=== PATIENT | female | born 1975 | race Asian ===

== ENCOUNTER 2024-04-15 10:08 | Emergency (ER) | payer OTHER, SELFPAY ==
[2024-04-15] VITALS (9 sets, daily range): BP systolic 128–173; BP diastolic 74–93; PULSE 62–70; RESP 12–14; TEMP 36.4; O2SAT 96–100; BMI 20.5
--- NOTE | 2024-04-15 10:46 | ED_ITS ---
HPI - Extremity Injury (Lower) General Chief Complaint: Extremity Injury, Lower Stated Complaint: Left side px Time Seen by Provider: 04/15/24 10:45 Source: patient and family Mode of arrival: Ambulatory History of Present Illness HPI Narrative: Patient is a 49-year-old female without significant past medical history presenting today with left leg pain and swelling. She reports that posterior thigh in her hamstring has been swollen and painful for the last 2 weeks worse over the last 2 days. Denies any sort of injury no fever chills or redness. Denies any chest pain. Reports no recent travel. Family have had blood clots but she has not personally had 1. Denies back pain denies injury. No abdominal pain nausea or vomiting She does speak Upper Sor[place] but there is some language barrier son is at bedside offered modern languages professor services which were decline Related Data Allergies Allergy/AdvReac Type Severity Reaction Status Date / Time No Known Drug Allergies Allergy Verified 04/15/24 10:29 Patient History Social History Smoking Status: Never smoker Smoking Status: Never smoker Exam Initial Vital Signs Initial Vital Signs: Vital Signs Temperature 97.6 F 04/15/24 10:15 Pulse Rate 65 04/15/24 10:15 Respiratory Rate 14 04/15/24 10:15 Blood Pressure 173/93 H 04/15/24 10:15 Pulse Oximetry 98 04/15/24 10:15 Oxygen Delivery Method Room Air 04/15/24 10:15 GENERAL: Well-appearing, well-nourished and in no acute distress. HEENT: Head atraumatic,EOMI, pupils reactive, face symmetric, moist mucous membranes CARDIOVASCULAR: Regular rate and rhythm without murmurs, rubs or gallops. RESPIRATORY: Breath sounds equal bilaterally, no wheezes rales or rhonchi. ABDOMEN: Soft, nontender. Normoactive bowel sounds all 4 quadrants. No guarding or rebound. EXTREMITIES: Normal range of motion, no clubbing or edema. Neurovascularly intact Left leg mild swollen him string full range of motion distal pedal pulse intact no erythema femoral pulse intact. More NEUROLOGICAL: Alert and oriented x4.Normal gait and speech. SKIN: Warm, dry, no laceration, no petechiae, no rashes or lesions. Course Orders Ordered: ED Orders 04/15/24 10:54 US periph venous low extrem lt Stat 04/15/24 11:00 CBC Auto Diff [Complete Blood Count AUTO DIFF] Stat CMP [Comprehensive Metabolic Panel] Stat CPK [Creatine Kinase] Stat Discontinued Medications Ketorolac Tromethamine (Ketorolac 30 Mg/Ml Vial) 15 mg IV NOW ONE Stop: 04/15/24 10:55 Last Admin: 04/15/24 11:09 Dose: 15 mg Documented By: AMITA Vital Signs Vital signs: Vital Signs - 8 hr 04/15/24 10:15 04/15/24 10:24 04/15/24 10:24 Temperature 97.6 F Pulse Rate 65 66 Respiratory Rate 14 Blood Pressure 173/93 H 173/93 H Pulse Oximetry 98 99 Oxygen Delivery Method Room Air 04/15/24 10:30 04/15/24 10:30 04/15/24 11:00 Temperature Pulse Rate 67 67 Respiratory Rate Blood Pressure 153/91 H Pulse Oximetry 100 98 Oxygen Delivery Method Room Air 04/15/24 11:00 04/15/24 11:30 04/15/24 11:30 Temperature Pulse Rate 62 Respiratory Rate Blood Pressure 153/88 H 136/77 Pulse Oximetry 100 Oxygen Delivery Method 04/15/24 12:00 04/15/24 12:00 04/15/24 12:30 Temperature Pulse Rate 68 Respiratory Rate Blood Pressure 128/81 134/89 Pulse Oximetry 98 Oxygen Delivery Method Room Air 04/15/24 12:30 04/15/24 12:46 04/15/24 12:46 Temperature Pulse Rate 70 69 Respiratory Rate Blood Pressure 141/74 H Pulse Oximetry 96 98 Oxygen Delivery Method 04/15/24 12:55 Temperature Pulse Rate Respiratory Rate 12 Blood Pressure Pulse Oximetry Oxygen Delivery Method MDM - Extremity Injury (Lower) Lab Data 04/15/24 11:00 04/15/24 11:00 Labs: Lab Results 04/15/24 Range/Units 11:00 WBC 9.2 (4.5-11.0) X10^3/uL RBC 5.12 (4.0-5.2) X10^6/uL Hgb 10.7 L (12.0-16.0) g/dL Hct 32.4 L (36-46) % MCV 63.4 L (80-100) fL MCH 21.0 L (26-34) PG MCHC 33.1 (30-36) % RDW 16.0 H (11.6-14.8) % Plt Count 247 (150-400) X10^3/uL Neut % (Auto) Not Reportable Lymph % (Auto) Not Reportable [place] % (Auto) Not Reportable Eos % (Auto) Not Reportable Baso % (Auto) Not Reportable Lymph # (Auto) Not Reportable [place] # (Auto) Not Reportable Baso # (Auto) Not Reportable Total Counted 100 Seg Neutrophils % 45.0 (38-70) % Lymphocytes % (Manual) 18.0 L (25-45) % Atypical Lymphs % 6.0 H ( - 0) % Monocytes % (Manual) 2.0 (2-11) % Eosinophils % (Manual) 29.0 H (2-4) % Neutrophils # (Manual) 4140 (8442-7921) /uL RBC Morphology Not Reportable Target Cells 2+ H Sodium 140 (137-145) mmol/L Potassium 3.5 (3.4-5.1) mmol/L Chloride 106 (98-107) mmol/L Carbon Dioxide 28 (22-32) mmol/L BUN 17 (7-17) mg/dL Creatinine 0.74 (0.52-1.04) mg/dL Estimated GFR > 60 (>60) mL/min BUN/Creatinine Ratio 23.0 H (6-22) Glucose 94 (70-100) mg/dL Calcium 8.9 (8.4-10.2) mg/dL Total Bilirubin 0.8 (0.2-1.3) mg/dL AST 28 (14-36) IU/L ALT 21 (<35) IU/L Alkaline Phosphatase 66 (38-126) U/L Total Creatine Kinase 93 (30-135) U/L Total Protein 7.9 (6.3-8.2) g/dL Albumin 4.2 (3.5-5.0) g/dL Globulin 3.7 (1.7-4.1) g/dL Albumin/Globulin Ratio 1.1 (1.0-2.8) Imaging Data US - DVT: Radiologist's Impression: PROCEDURE: US PERIPH VENOUS LOW EXTREM LT INDICATIONS: swelling TECHNIQUE: Real-time imaging, as well as color and pulse Doppler interrogation, were performed of the lower extremity deep veins from the inguinal ligament to the popliteal fossa, with documentation of the visualized calf veins. COMPARISON: None. FINDINGS: The common femoral, femoral, popliteal, and the visualized calf veins are normally compressible, and free of intraluminal thrombus. Color and pulse Doppler demonstrate normal phasic intraluminal flow. There is normal augmentation response to distal compression maneuver. IMPRESSION: No findings of lower extremity deep venous thrombosis. Dictated by: Roma Kennedy M.D. on 04/15/2024 at 11:05 MDM Narrative Medical decision making narrative: Patient 49-year-old female presenting today with left leg pain and swelling. I do not appreciate a lot of swelling in thigh. She has no significant swelling in her calf or foot. She is strong distal pedal pulses leg itself is warm no evidence of ischemia. She has no erythema or evidence of infection. She is full range of motion. Blood work has been reviewed she has no leukocytosis or electrolyte or kidney function abnormality. CPKs within normal limits no evidence of rhabdomyolysis Ultrasound does not show any evidence of DVT At this time unclear what is causing her pain I do not appreciate a lot of swelling. Recommend supportive care elevation and ice. Discharge Plan Departure Patient Disposition: Home Clinical Impression: Acute leg pain Instructions: DI for Leg Pain Activity Restrictions/Additional Instructions: *You have been diagnosed with leg pain *What to do: At this time no evidence of blood clot no infection recommend elevation and ice *Continue to take medications as directed Ibuprofen 600 mg every 6 hours if needed for [id number] pain *Follow up with your primary care provider in 2-3 days or call [phone] *Return to ER if you should have increasing pain swelling or any new, worsening or concerning symptoms Referrals: Kae,MD Andrew [Primary Care Provider] - Stand Alone Forms: Patient Portal/API/Survey
--- NOTE | 2024-04-15 10:54 | DI.US.S_ITS ---
PROCEDURE: US PERIPH VENOUS LOW EXTREM LT INDICATIONS: swelling TECHNIQUE: Real-time imaging, as well as color and pulse Doppler interrogation, were performed of the lower extremity deep veins from the inguinal ligament to the popliteal fossa, with documentation of the visualized calf veins. COMPARISON: None. FINDINGS: The common femoral, femoral, popliteal, and the visualized calf veins are normally compressible, and free of intraluminal thrombus. Color and pulse Doppler demonstrate normal phasic intraluminal flow. There is normal augmentation response to distal compression maneuver. IMPRESSION: No findings of lower extremity deep venous thrombosis. Dictated by: Roma Kennedy M.D. on 04/15/2024 at 11:05 Approved by: Roma Kennedy M.D. on 04/15/2024 at 11:06
--- NOTE | 2024-04-15 11:05 | PC.NURSE ---
Doppler used to verify pulse in left foot. Able to find pulse with doppler.
[2024-04-15] MEDS: KETOROLAC 30 MG/ML VIAL 15 MG IV (11:09)
[2024-04-15 11:16] LABS: Add Manual Diff / Slide Review YES; Hematocrit 32.4 % (36-46); Hemoglobin 10.7 g/dL (12.0-16.0); Mean Corpuscular HGB Conc 33.1 % (30-36); Mean Corpuscular Volume 63.4 fL (80-100); Platelet Count 247 X10^3/uL (150-400); Red Blood Cell Count 5.12 X10^6/uL (4.0-5.2); White Blood Cell Count 9.2 X10^3/uL (4.5-11.0)
[2024-04-15 11:23] LABS: Alanine Aminotransferase 21 IU/L (<35); Albumin 4.2 g/dL (3.5-5.0); Albumin Globulin Ratio 1.1 (1.0-2.8); Alkaline Phosphatase 66 U/L (38-126); Aspartate Aminotransferase 28 IU/L (14-36); Bilirubin Total 0.8 mg/dL (0.2-1.3); Blood Urea Nitrogen 17 mg/dL (7-17); Calcium 8.9 mg/dL (8.4-10.2); Carbon Dioxide 28 mmol/L (22-32); Chloride 106 mmol/L (98-107); Creatine Kinase 93 U/L (30-135); Estimated Glomerular Filt Rate > 60 mL/min (>60); Globulin 3.7 g/dL (1.7-4.1); Glucose 94 mg/dL (70-100); HEMOLYSIS < 15 (0-50); Potassium 3.5 mmol/L (3.4-5.1); Sodium 140 mmol/L (137-145); Total Protein 7.9 g/dL (6.3-8.2)
[2024-04-15 11:29] LABS: Neutrophils Absolute Manual 4140 /uL (3000-5900); Target Cells 2+; Total Cells Counted 100
== END 2024-04-15 12:55 | disposition home or self-care (01) ==
PROVIDERS: Emergency Provider Emergency Medicine
DX: M79.605 Pain in left leg (principal)
CPT/HCPCS: 36415; 80053; 82550; 85007; 85025; 93971; 96374; 99284; J1885

== ENCOUNTER → 2024-06-25 10:52 | Outpatient (CLI) | payer OTHER, SELFPAY ==
--- NOTE | 2024-06-25 10:54 | DI.RAD.S_ITS ---
PROCEDURE: XR CHEST 2V INDICATIONS: Cough TECHNIQUE: 2 views of the chest were acquired. COMPARISON: None. FINDINGS: Surgical changes and devices: None. Lungs and pleura: Lungs are clear. No pleural effusions or pneumothorax. Mediastinum: Mediastinal contours are normal. Heart size is normal. Bones and chest wall: No suspicious bony abnormalities. Soft tissues appear unremarkable. IMPRESSION: No acute cardiopulmonary abnormality is seen. Dictated by: Vamsi Downing M.D. on 06/25/2024 at 12:01 Approved by: Vamsi Downing M.D. on 06/25/2024 at 12:01
--- NOTE | 2024-06-25 10:54 | DI.RAD.S_ITS ---
PROCEDURE: XR SHOULDER LT MIN 2V INDICATIONS: Pain in left shoulder TECHNIQUE: 3 views of the shoulder were acquired. COMPARISON: None. FINDINGS: Bones: No fractures or dislocations. No suspicious bony lesions. Visualized ribs appear intact. Acromioclavicular joint space narrowing with osteophytosis. Soft tissues: No suspicious soft tissue calcifications. IMPRESSION: Mild acromioclavicular osteoarthritis. Dictated by: Vamsi Downing M.D. on 06/25/2024 at 12:01 Approved by: Vamsi Downing M.D. on 06/25/2024 at 12:01
[2024-06-25 12:04] LABS: Hematocrit 34.9 % (36-46); Hemoglobin 11.6 g/dL (12.0-16.0); Mean Corpuscular HGB Conc 33.1 % (30-36); Mean Corpuscular Hemoglobin 20.9 PG (26-34); Mean Corpuscular Volume 63.1 fL (80-100); Platelet Count 172 X10^3/uL (150-400); Red Blood Cell Count 5.53 X10^6/uL (4.0-5.2); Red Cell Distribution Width 15.1 % (11.6-14.8); White Blood Cell Count 5.9 X10^3/uL (4.5-11.0)
[2024-06-25 12:05] LABS: Add Manual Diff / Slide Review YES
[2024-06-25 12:18] LABS: Alanine Aminotransferase 22 IU/L (<35); Albumin 4.7 g/dL (3.5-5.0); Albumin Globulin Ratio 1.6 (1.0-2.8); Alkaline Phosphatase 58 U/L (38-126); Aspartate Aminotransferase 27 IU/L (14-36); BUN Creatinine Ratio 26.7 (6-22); Bilirubin Total 1.4 mg/dL (0.2-1.3); Blood Urea Nitrogen 16 mg/dL (7-17); Calcium 9.3 mg/dL (8.4-10.2); Carbon Dioxide 25 mmol/L (22-32); Chloride 104 mmol/L (98-107); Cholesterol 180 mg/dL (140-199); Estimated Glomerular Filt Rate > 60 mL/min (>60); Globulin 2.9 g/dL (1.7-4.1); Glucose 97 mg/dL (70-100); HDL Cholesterol 85 mg/dL (40-60); HEMOLYSIS < 15 (0-50); LDL Cholesterol Calculated 86 mg/dL (<100); Potassium 3.8 mmol/L (3.4-5.1); Sodium 138 mmol/L (137-145); Total Protein 7.6 g/dL (6.3-8.2); Triglycerides 46 mg/dL (35-150)
[2024-06-25 14:38] LABS: Neutrophils Absolute Manual 3068 /uL (3000-5900); Target Cells 1+; Total Cells Counted 100
[2024-06-27 21:36] LABS: QuantiFERON Mitogen Value >10.00 IU/mL (.); QuantiFERON Nil Value 0.17 IU/mL (.); QuantiFERON TB Gold Plus Negative (Negative); QuantiFERON TB1 Ag Value 0.11 IU/mL (.); QuantiFERON TB2 Ag Value 0.12 IU/mL (.)
== END ==
PROVIDERS: PCP Family Medicine; Referring Provider Family Medicine; Visit Provider Family Medicine
DX: M19.012 Primary osteoarthritis, left shoulder (principal); M25.512 Pain in left shoulder; R05.9 Cough, unspecified; Z13.6 Encounter for screening for cardiovascular disorders; Z83.1 Family history of other infectious and parasitic diseases
CPT/HCPCS: 36415; 71046; 73030; 80053; 80061; 85007; 85025; 86480